=== PATIENT | male | born 1990 | race Caucasian/White ===

== ENCOUNTER 2018-06-17 06:13 | Emergency (ER) | payer BC ==
[~2018-06-17] VITALS: Ht 175.3 cm; Wt 96.3 kg
[2018-06-17 06:17] VITALS: TEMP 36.8; Ht 175.3 cm; Wt 96.3 kg
[2018-06-17] MEDS ORDERED: IBUP-1450 PO (06:29)
[2018-06-17] MEDS ORDERED: VNTHFA/IN INH (06:29)
[2018-06-17] MEDS ORDERED: OPTIRAY 320 IV PRN (07:15)
--- NOTE | 2018-06-17 07:21 | EMERGENCY ROOM VISIT NOTE ---
History Report prepared by Sara: Dudley Day Under the Supervision of: Dr. Christiano Wild D.O. First contact with patient: 06:30 Chief Complaint: NECK PAIN Stated Complaint: NECK PAIN W/ HEADACHE History of Present Illness The patient is a 27 year old male who presents to the Emergency Room with complaints of a headache and neck pain that has been constant since yesterday morning. The patient states that when he woke up yesterday morning he had a "coughing fit." During this coughing fit he felt a "pop" in his neck, which precipitated a "smashing" headache. He notes that his pain now starts in his neck and radiates up into the back of his head. He adds that this has happened before, but he has not felt it in a couple of months. Source of History: patient Onset: Yesterday Position: neck Quality: other ("pop" in neck "smashing" headache) Timing: constant Associated Symptoms: + headache Review of Systems See HPI for pertinent positives & negatives. A total of 10 systems reviewed and were otherwise negative. Past Medical & Surgical Hx of Asthma Family History Diabetes mellitus Heart disease Hypertension Social History Smoking Status: Current Some Day Smoker Marital Status: in relationship Housing Status: lives with family Occupation Status: employed Current/Historical Medications Scheduled PRN Albuterol Hfa (Ventolin Hfa), 2 PUFFS INH Q6H PRN for SOB/Wheezing Ibuprofen (Motrin), 600 MG PO TID PRN for Pain Allergies Coded Allergies: Metaproterenol (Verified Allergy, Intermediate, HIVES, 06/17/18) Flu Virus Vaccine (Verified Allergy, Unknown, RASH, 06/17/18) Physical Exam Vital Signs Date Time Temp Pulse Resp B/P (MAP) Pulse Ox O2 Delivery O2 Flow Rate FiO2 06/17/18 08:40 48 18 159/77 97 06/17/18 06:50 71 16 176/108 97 Room Air 06/17/18 06:17 36.8 69 18 152/95 99 Room Air Physical Exam CONSTITUTIONAL/VITAL SIGNS: Reviewed / noted above. GENERAL: Non-toxic in appearance. INTEGUMENTARY: Warm, dry, and [place]. HEAD: Normocephalic. EYES: without scleral icterus or trauma. ENT/OROPHARYNX: clear and moist. LYMPHADENOPATHY/NECK: Is supple without lymphadenopathy or meningismus. RESPIRATORY: Lungs clear and equal. CARDIOVASCULAR: Regular rate and rhythm. GI/ABDOMEN: Soft and nontender. No organomegaly or pulsatile mass. No rebound or guarding. Normal bowel sounds. EXTREMITIES: Warm and well perfused. BACK: No CVA tenderness. NEUROLOGICAL: Intact without focal deficits. PSYCHIATRIC: normal affect. MUSCULOSKELETAL: Normally developed with good muscle tone. Medical Decision & Procedures ER Provider Diagnostic Interpretation: Radiology results as stated below per my review and radiologist interpretation: HEAD ANGIO WITH CONTRAST HISTORY: 27 years-old Male presents with acute headache with posterior head and neck pain COMPARISON: CTA neck of same day, CT head of same day TECHNIQUE: CTA of the head was obtained following the intravenous administration of 115 mL Optiray 320 IV contrast. 3-D coronal and sagittal MIPS were obtained from the axial data set and were submitted for review. All measurements were obtained according to NASCET criteria. A dose lowering technique was used consistent with the principals of NABILA. FINDINGS: Imaged bilateral internal carotid arteries are widely patent and within normal limits. The bilateral middle and anterior cerebral arteries also appear normal and are patent. The anterior communicating artery and A2 segments are within normal limits. Imaged bilateral distal vertebral arteries are patent and appear to be codominant. The basilar artery is patent. The bilateral posterior cerebral arteries are also patent and within normal limits. The cerebral venous sinuses are patent and within normal limits. Image intracranial structures are unremarkable. The orbits and soft tissues are within normal limits. Mild mucoperiosteal thickening about the bilateral axillary sinuses. No calvarial fracture. The mastoid air cells and middle ear cavities are clear. 3 mm focus of polypoid mucosal thickening involves the anterior right sphenoid sinus. IMPRESSION: 1. Unremarkable MRA of the head without aneurysm, dissection, high-grade stenosis or proximal branch occlusion. 2. Mild mucoperiosteal thickening about the bilateral maxillary sinuses. The above report was generated using voice recognition software. It may contain grammatical, syntax or spelling errors. Electronically signed by: Dylan Farnsworth M.D. 06/17/2018 7:52 AM Dictated Date/Time: 06/17/2018 7:45 AM NECK ANGIO WITH CONTRAST HISTORY: Cough pain TECHNIQUE: Multiaxial CT images of the neck were performed following the intravenous administration of contrast to evaluate the major cervical vessels. Maximum intensity projection images were also obtained. All measurements were calculated based on NASCET criteria. A dose lowering technique was utilized adhering to the principles of ALARA. COMPARISON STUDY: None. FINDINGS: The aortic arch and proximal great vessels are widely patent. There is no significant stenosis, occlusion, or dissection identified within the bilateral common carotid, internal carotid, or vertebral arteries. IMPRESSION: No significant stenosis, occlusion, or dissection identified within the carotid or vertebral arteries. The above report was generated using voice recognition software. It may contain grammatical, syntax or spelling errors. Electronically signed by: Warner Keith M.D. 06/17/2018 7:51 AM Dictated Date/Time: 06/17/2018 7:46 AM HEAD WITHOUT CONTRAST (CT) CT DOSE: HISTORY: Headache headache after coughing in back of head TECHNIQUE: Multiaxial CT images of the head were performed without the use of intravenous contrast. A dose lowering technique was utilized adhering to the principles of ALARA. Comparison: None. Findings: The paranasal sinuses and mastoid air cells are clear. The calvarium and skull base are intact. The ventricles and sulci are within normal limits. There is no mass, hematoma, midline shift, or acute infarct. Impression: No acute intracranial abnormality. The above report was generated using voice recognition software. It may contain grammatical, syntax or spelling errors. Electronically signed by: Warner Keith M.D. 06/17/2018 7:45 AM Dictated Date/Time: 06/17/2018 7:44 AM Laboratory Results Test 06/17/18 07:10 06/17/18 07:13 Bedside D-Dimer 41 ng/mlFEU (0-450) Bedside Hemoglobin 13.6 g/dl (14.0-18.0) Bedside Hematocrit 40 % (42-52) Bedside Sodium 142 mEq/L (135-144) Bedside Potassium 4.1 mEq/L (3.3-5.0) Bedside Chloride 104 mEq/L (101-112) Bedside Total CO2 27 mEq/l (24-31) Anion Gap 15.0 mmol/L (16-25) Bedside Blood Urea Nitrogen 11 mg/dl (7-18) Bedside Creatinine 0.9 mg/dl (0.6-1.3) Bedside Glucose (other) 99 mg/dl (70-99) Bedside Ionized Calcium ([place]) 1.16 mmol/l (1.12-1.32) Laboratory results as stated above per my review. ED Course 0639: Previous medical records were reviewed. The patient was evaluated in room A2. A complete history and physical examination was performed. 090: On reevaluation, the patient is resting in bed. I discussed the results and findings with the patient. He verbalized agreement of the treatment plan. The patient was discharged home. Medical Decision Differential diagnosis: Etiologies such as migraine headache, meningitis, sinusitis, CO exposure, ICH, SAH, infection, tumor, headache, sinus thrombosis, arterial dissection, as well as others were entertained. This is a 27-year-old male who presents to the ED with a chief complaint of a posterior headache and some neck discomfort that occurred after coughing yesterday. The patient states that he had a coughing spell and heard a pop in his neck. He states that he went to the emergency room at [facility] [place] and also saw his PCP. He states that he was told to take Motrin and nothing was done to investigate his symptoms. His physical exam here is normal. His neurologic exam was normal. His blood pressure was elevated at 152/95. A CT scan of the head, CT angiogram of the head and neck were negative. The patient had normal blood work. He was told the results. He is felt to be stable for discharge and outpatient follow-up. Medication Reconcilliation Current Medication List: was personally reviewed by me Blood Pressure Screening Patient's blood pressure: Elevated blood pressure Blood pressure disposition: Referred to PCP Impression Primary Impression: Headache Additional Impression: Neck pain Scribe Attestation The scribe's documentation has been prepared under my direction and personally reviewed by me in its entirety. I confirm that the note above accurately reflects all work, treatment, procedures, and medical decision making performed by me. Departure Information Dispostion Home / Self-Care Referrals Noe Laurent DO (PCP) Forms HOME CARE DOCUMENTATION FORM, IMPORTANT VISIT INFORMATION, WORK / SCHOOL INSTRUCTIONS Patient Instructions My [facility] Additional Instructions Your CT scan test results and blood work today were normal. Your symptoms are musculoskeletal in nature. Problem Qualifiers
[2018-06-17 07:22] LABS: ISTAT CREATININE 0.9 mg/dl (0.6-1.3); ISTAT IONIZED CALCIUM 1.16 mmol/l (1.12-1.32); ISTAT POTASSIUM 4.1 mEq/L (3.3-5.0)
--- NOTE | 2018-06-17 07:46 | DIAGNOSTIC IMAGING REPORT ---
HEAD WITHOUT CONTRAST (CT) CT DOSE: HISTORY: Headache headache after coughing in back of head TECHNIQUE: Multiaxial CT images of the head were performed without the use of intravenous contrast. A dose lowering technique was utilized adhering to the principles of ALARA. Comparison: None. Findings: The paranasal sinuses and mastoid air cells are clear. The calvarium and skull base are intact. The ventricles and sulci are within normal limits. There is no mass, hematoma, midline shift, or acute infarct. Impression: No acute intracranial abnormality. The above report was generated using voice recognition software. It may contain grammatical, syntax or spelling errors. Electronically signed by: Warner Keith M.D. 06/17/2018 7:45 AM Dictated Date/Time: 06/17/2018 7:44 AM
--- NOTE | 2018-06-17 07:52 | DIAGNOSTIC IMAGING REPORT ---
NECK ANGIO WITH CONTRAST HISTORY: Cough pain TECHNIQUE: Multiaxial CT images of the neck were performed following the intravenous administration of contrast to evaluate the major cervical vessels. Maximum intensity projection images were also obtained. All measurements were calculated based on NASCET criteria. A dose lowering technique was utilized adhering to the principles of ALARA. COMPARISON STUDY: None. FINDINGS: The aortic arch and proximal great vessels are widely patent. There is no significant stenosis, occlusion, or dissection identified within the bilateral common carotid, internal carotid, or vertebral arteries. IMPRESSION: No significant stenosis, occlusion, or dissection identified within the carotid or vertebral arteries. The above report was generated using voice recognition software. It may contain grammatical, syntax or spelling errors. Electronically signed by: Warner Keith M.D. 06/17/2018 7:51 AM Dictated Date/Time: 06/17/2018 7:46 AM
--- NOTE | 2018-06-17 07:53 | DIAGNOSTIC IMAGING REPORT ---
HEAD ANGIO WITH CONTRAST HISTORY: 27 years-old Male presents with acute headache with posterior head and neck pain COMPARISON: CTA neck of same day, CT head of same day TECHNIQUE: CTA of the head was obtained following the intravenous administration of 115 mL Optiray 320 IV contrast. 3-D coronal and sagittal MIPS were obtained from the axial data set and were submitted for review. All measurements were obtained according to NASCET criteria. A dose lowering technique was used consistent with the principals of NABILA. FINDINGS: Imaged bilateral internal carotid arteries are widely patent and within normal limits. The bilateral middle and anterior cerebral arteries also appear normal and are patent. The anterior communicating artery and A2 segments are within normal limits. Imaged bilateral distal vertebral arteries are patent and appear to be codominant. The basilar artery is patent. The bilateral posterior cerebral arteries are also patent and within normal limits. The cerebral venous sinuses are patent and within normal limits. Image intracranial structures are unremarkable. The orbits and soft tissues are within normal limits. Mild mucoperiosteal thickening about the bilateral axillary sinuses. No calvarial fracture. The mastoid air cells and middle ear cavities are clear. 3 mm focus of polypoid mucosal thickening involves the anterior right sphenoid sinus. IMPRESSION: 1. Unremarkable MRA of the head without aneurysm, dissection, high-grade stenosis or proximal branch occlusion. 2. Mild mucoperiosteal thickening about the bilateral maxillary sinuses. The above report was generated using voice recognition software. It may contain grammatical, syntax or spelling errors. Electronically signed by: Dylan Farnsworth M.D. 06/17/2018 7:52 AM Dictated Date/Time: 06/17/2018 7:45 AM
[2018-06-17 08:40] VITALS: BP 159/77; PULSE 48; O2SAT 97
== END 2018-06-17 09:14 | disposition home or self-care (01) ==
LOC: C.EDB 06:14 → C.EDA 09:14
DX: R51 Headache (principal); M54.2 Cervicalgia; F17.200 Nicotine dependence, unspecified, uncomplicated; Z88.8 Allergy status to other drugs, medicaments and biological substances